=== PATIENT | male | born 1975 | race Two or more races ===

== ENCOUNTER 2020-11-29 09:58 | Inpatient (IN) | payer OTHER ==
[~2020-11-29] VITALS: Ht 170.2 cm; Wt 81.8 kg
[2020-11-29 11:06] LABS: EOSINOPHILS % (AUTO) 4.2 % (1.0-6.0); HEMATOCRIT 42.9 % (41-53); HEMOGLOBIN 14.3 g/dL (13.5-17.5); LYMPHOCYTES # (AUTO) 1.3 K/uL (1.0-4.8); LYMPHOCYTES % (AUTO) 27.6 % (22.0-44.0); MEAN CORPUSCULAR HEMOGLOBIN 31.4 pg (26.0-34.0); MEAN CORPUSCULAR HGB CONC 33.2 G/dL (31.0-37.0); MEAN CORPUSCULAR VOLUME 94 fL (80-100); MONOCYTES # (AUTO) 0.5 K/uL (0.1-1.0); NEUTROPHILS # (AUTO) 2.6 K/uL (1.8-7.7); NEUTROPHILS % (AUTO) 56.2 % (40.0-70.0); PLATELET COUNT (AUTO) 197 K/uL (150-450); RED BLOOD CELL COUNT(AUTO) 4.55 MIL/uL (4.50-5.90); RED CELL DISTRIBUTION WIDTH 13.4 % (11.5-14.5)
[2020-11-29 11:10] LABS: COVID AG,FIA SOURCE NASOPHARYNGEAL
[2020-11-29 11:15] LABS: ANION GAP 6 mmol/L (8-16); CALCIUM, TOTAL 8.4 mg/dL (8.8-10.5); CARBON DIOXIDE 29 mmol/L (22-29); CHLORIDE 106 mmol/L (98-107); CREATININE 0.81 mg/dL (0.60-1.30); GLOMERULAR FILTR. RATE CALC > 60 mL/min (>60); GLUCOSE,RANDOM 101 mg/dL (70-110); POTASSIUM 3.3 mmol/L (3.5-5.1); SODIUM SERUM 141 mmol/L (136-145); UREA NITROGEN, BLOOD 16 mg/dL (7-18)
[2020-11-29 11:20] LABS: ALANINE AMINOTRANSFERASE 16 U/L (12-78); ALBUMIN 3.2 g/dL (3.4-5.0); ALKALINE PHOSPHATASE 78 U/L (46-116); ASPARTATE AMINOTRANSFERASE 19 U/L (15-37); BILIRUBIN,TOTAL 0.2 mg/dL (0.1-1.0); TOTAL PROTEIN, SERUM 6.7 g/dL (6.4-8.2)
[2020-11-29] MEDS ORDERED: ACETAMINOPHEN 325 MG TABLET PO PRN (12:15)
[2020-11-29 14:35] VITALS: BP 129/71
[2020-11-29 19:30] VITALS: BP 133/75
[2020-11-30 04:55] VITALS: BP 137/74
[2020-11-30 08:13] VITALS: BP 130/68
[2020-11-30] MEDS ORDERED: LOPERAMIDE HCL 2 MG/15 ML SUSPENSION UDCUP PO PRN (14:30)
[2020-11-30] MEDS ORDERED: HydrOXYzine PAMOATE 50 MG CAPSULE PO PRN (14:30)
[2020-11-30] MEDS ORDERED: PROMETHAZINE HCL 25 MG TABLET PO PRN (14:30)
[2020-11-30] MEDS ORDERED: OLANZapine 5 MG TABLET PO ONE (14:30)
[2020-11-30] MEDS ORDERED: DICYCLOMINE HCL 10 MG CAPSULE PO PRN (14:30)
[2020-11-30] MEDS ORDERED: TraZODone HCL 50 MG TABLET PO PRN (14:30)
[2020-11-30] MEDS ORDERED: MAG HYDROX/AL HYDROX/SIMETH ES 30 ML SUSPENSION UDCUP PO PRN (14:30)
[2020-11-30] MEDS ORDERED: LORazepam 1 MG TABLET PO PRN (14:30)
[2020-11-30 14:59] LABS: AMPHET/METH SCREEN,URINE POSITIVE (NEGATIVE); BARBITURATE SCREEN, URINE NEGATIVE (NEGATIVE); BENZODIAZEPINES SCREEN,URINE NEGATIVE (NEGATIVE); CANNABINOID SCREEN,URINE NEGATIVE (NEGATIVE); COCAINE SCREEN,URINE NEGATIVE (NEGATIVE); METHADONE SCREEN, URINE NEGATIVE (NEGATIVE); OPIATE SCREEN,URINE NEGATIVE (NEGATIVE)
[2020-11-30 15:00] LABS: PHENCYCLIDINE SCREEN,URINE NEGATIVE (NEGATIVE)
[2020-11-30] MEDS: SODIUM CHLORIDE 0.45% 1,000 ML IV SCH (15:40)
[2020-11-30 17:54] VITALS: BP 124/68
[2020-11-30] MEDS ORDERED: POTASSIUM CHLORIDE 20 MEQ ER TABLET PO PRN ×2 (19:30)
[2020-11-30] MEDS ORDERED: POTASSIUM CHL 10 MEQ/WATER 50 ML IV PRN ×2 (19:30)
[2020-11-30 19:32] VITALS: BP 132/75
[2020-11-30] MEDS ORDERED: MIRTAZAPINE 15 MG TABLET PO SCH (21:00)
[2020-12-01] VITALS (10 sets, daily range): BP systolic 105–132; BP diastolic 45–77
[2020-12-01] MEDS: SODIUM CHLORIDE 0.45% 1,000 ML IV SCH (04:07)
[2020-12-01] MEDS: OLANZapine 5 MG TABLET PO SCH (08:13)
[2020-12-01] MEDS: BACLOFEN 10 MG TABLET PO PRN (18:12)
[2020-12-01] MEDS: ACETAMINOPHEN 325 MG TABLET PO PRN (18:40)
[2020-12-01] MEDS: MIRTAZAPINE 15 MG TABLET PO SCH (20:20)
[2020-12-02 06:44] LABS: EOSINOPHILS % (AUTO) 2.7 % (1.0-6.0); HEMATOCRIT 45.3 % (41-53); HEMOGLOBIN 15.4 g/dL (13.5-17.5); LYMPHOCYTES # (AUTO) 1.8 K/uL (1.0-4.8); LYMPHOCYTES % (AUTO) 30.5 % (22.0-44.0); MEAN CORPUSCULAR HEMOGLOBIN 31.8 pg (26.0-34.0); MEAN CORPUSCULAR VOLUME 94 fL (80-100); MONOCYTES # (AUTO) 0.5 K/uL (0.1-1.0); MONOCYTES % (AUTO) 8.9 % (2.0-9.0); NEUTROPHILS # (AUTO) 3.4 K/uL (1.8-7.7); NEUTROPHILS % (AUTO) 56.9 % (40.0-70.0); PLATELET COUNT (AUTO) 219 K/uL (150-450); RED BLOOD CELL COUNT(AUTO) 4.84 MIL/uL (4.50-5.90); RED CELL DISTRIBUTION WIDTH 13.1 % (11.5-14.5)
[2020-12-02 07:14] LABS: ALANINE AMINOTRANSFERASE 14 U/L (12-78); ALBUMIN 3.1 g/dL (3.4-5.0); ALKALINE PHOSPHATASE 74 U/L (46-116); ANION GAP 4 mmol/L (8-16); ASPARTATE AMINOTRANSFERASE 12 U/L (15-37); BILIRUBIN,TOTAL 0.3 mg/dL (0.1-1.0); CALCIUM, TOTAL 8.3 mg/dL (8.8-10.5); CARBON DIOXIDE 30 mmol/L (22-29); CHLORIDE 106 mmol/L (98-107); CREATININE 0.85 mg/dL (0.60-1.30); GLOMERULAR FILTR. RATE CALC > 60 mL/min (>60); GLUCOSE,RANDOM 82 mg/dL (70-110); SODIUM SERUM 140 mmol/L (136-145); TOTAL PROTEIN, SERUM 6.8 g/dL (6.4-8.2); UREA NITROGEN, BLOOD 11 mg/dL (7-18)
[2020-12-02 08:05] VITALS: BP 131/77
[2020-12-02] MEDS: ACETAMINOPHEN 325 MG TABLET PO PRN ×2 (08:19→18:09)
[2020-12-02] MEDS: OLANZapine 5 MG TABLET PO SCH (08:19)
[2020-12-02 10:26] VITALS: BP 131/77
[2020-12-02 11:33] VITALS: BP 131/77
[2020-12-02] MEDS: IBUPROFEN 600 MG TABLET PO PRN (12:21)
[2020-12-02] MEDS: BACLOFEN 10 MG TABLET PO PRN (12:22)
[2020-12-02] MEDS: SODIUM CHLORIDE 0.45% 1,000 ML IV SCH (14:32)
[2020-12-02] MEDS: CloNIDine HCL 0.1 MG TABLET PO PRN (18:15)
[2020-12-02 19:55] VITALS: BP 110/60
[2020-12-02] MEDS: MIRTAZAPINE 15 MG TABLET PO SCH (20:29)
[2020-12-02 23:40] VITALS: BP 125/74
[2020-12-03 05:05] VITALS: BP 116/67
[2020-12-03 05:08] LABS: APPEARANCE,URINE CLEAR (CLEAR); BILIRUBIN,URINE NEGATIVE (NEGATIVE); GLUCOSE, URINE (UA) NEGATIVE (NEGATIVE); KETONES,URINE NEGATIVE (NEGATIVE); LEUKOCYTE ESTERASE ,URINE NEGATIVE (NEGATIVE); NITRATE,URINE NEGATIVE (NEGATIVE); OCCULT BLOOD,URINE NEGATIVE (NEGATIVE); PROTEIN,URINE NEGATIVE (NEGATIVE); UROBILINOGEN,URINE 0.2 mg/dL (<=1.0)
[2020-12-03 07:59] VITALS: BP 121/74
[2020-12-03 08:00] VITALS: BP 121/74
[2020-12-03] MEDS: OLANZapine 5 MG TABLET PO SCH (08:37)
[2020-12-03] MEDS: ACETAMINOPHEN 325 MG TABLET PO PRN ×2 (08:37→16:58)
[2020-12-03] MEDS: SODIUM CHLORIDE 0.45% 1,000 ML IV SCH (08:38)
[2020-12-03] MEDS: CloNIDine HCL 0.1 MG TABLET PO PRN (16:39)
[2020-12-03] MEDS: MIRTAZAPINE 15 MG TABLET PO SCH (20:12)
[2020-12-03] MEDS: IBUPROFEN 600 MG TABLET PO PRN (20:15)
[2020-12-03 20:42] VITALS: BP 114/53
[2020-12-04] MEDS: SODIUM CHLORIDE 0.45% 1,000 ML IV SCH
[2020-12-04] MEDS: BACLOFEN 10 MG TABLET PO PRN (06:19)
[2020-12-04 07:42] VITALS: BP 130/77
[2020-12-04] MEDS: OLANZapine 5 MG TABLET PO SCH (08:13)
[2020-12-04] MEDS: ACETAMINOPHEN 325 MG TABLET PO PRN (08:13)
[2020-12-04] MEDS ORDERED: LevETIRAcetam 500 MG TABLET PO ONE (10:45)
[2020-12-04] MEDS ORDERED: LEVE500T53 PO (14:30)
[2020-12-04] MEDS ORDERED: OLAN5TAB52 PO (14:30)
[2020-12-04] MEDS ORDERED: MIRT-89 PO (14:30)
[2020-12-04] MEDS ORDERED: LevETIRAcetam 500 MG TABLET PO SCH (21:00)
== END 2020-12-04 16:52 | DRG 897 ==
LOC: EMS 10:02 → 6S 13:53
PROVIDERS: ADMIT Hospitalist; ATTEND Hospitalist
DX: F11.23 Opioid dependence with withdrawal (principal); R44.0 Auditory hallucinations; F33.2 Major depressive disorder, recurrent severe without psychotic features; Z20.822 Contact with and (suspected) exposure to COVID-19; E87.6 Hypokalemia; F17.200 Nicotine dependence, unspecified, uncomplicated; R00.1 Bradycardia, unspecified; R56.9 Unspecified convulsions
CPT/HCPCS: 71045; 80053; 81003; 84132; 85025; 99285; G0480; 36415-L1; 36415-TC